=== PATIENT | male | born 1935 | race Caucasian/White ===

== ENCOUNTER 2021-03-07 14:57 | Outpatient (REF) | payer MEDICARE, OTHER, SELFPAY ==
--- NOTE | ~2021-03-07 | CT_ITS ---
EXAMINATION: CT HEAD WITHOUT CONTRAST CLINICAL INFORMATION: Head trauma COMPARISON: None TECHNIQUE: Contiguous axial imaging was performed from the skull base to vertex without intravenous administration of contrast. This CT examination was performed using dose optimization techniques as appropriate, variously including the following: *Automated exposure control *Adjustment of mA and/or kV according to patient size (this includes techniques or standardized protocols for targeted exams where dose is matched to indication/reason for exam; i.e. extremities or head) *Use of iterative reconstruction technique DLP: 884 mGy-cm FINDINGS: There is no evidence of an extra-axial collection. There is no evidence of intra-axial or axial hemorrhage. The ventricles and extra-axial CSF spaces are prominent suggestive of generalized atrophy. There is nonspecific periventricular white matter disease. No mass, mass effect or infarct is seen. There is evidence of atherosclerotic disease. Review at bone windows is normal. No skull fracture is seen. Visualized paranasal sinuses, mastoid air cells and middle ears are clear. CT/CT head/brain wo con IMPRESSION: No acute intracranial pathology. Mild generalized atrophy and nonspecific periventricular white matter disease.
== END 2021-03-07 14:58 | disposition home or self-care (01) ==
LOC: HO.CT 14:57
PROVIDERS: PCP Internal Medicine; Visit Provider Internal Medicine
DX: S09.90XD Unspecified injury of head, subsequent encounter (principal); Z91.81 History of falling
CPT/HCPCS: 70450

== ENCOUNTER 2022-12-09 16:33 | Outpatient (REF) | payer MEDICARE, OTHER, SELFPAY ==
--- NOTE | ~2022-12-09 | XR_ITS ---
EXAMINATION: XR CHEST CLINICAL INFORMATION: Frequent cough COMPARISON: Previous chest x-ray August 2017 TECHNIQUE: 2 views of the chest were obtained. FINDINGS: The cardiac and mediastinal contours are stable. Mitral valve replacement and median sternotomy wires. Calcified aortic arch. The lungs are clear. No pleural effusion or pneumothorax. Degenerative changes of the spine. XR/XR chest 2V IMPRESSION: No evidence for acute disease in the chest.
== END 2022-12-09 16:34 | disposition home or self-care (01) ==
LOC: HO.XRAY 16:33
PROVIDERS: PCP Internal Medicine; Visit Provider Internal Medicine
DX: R05.9 Cough, unspecified (principal); R09.89 Other specified symptoms and signs involving the circulatory and respiratory systems
CPT/HCPCS: 71046

== ENCOUNTER 2023-04-19 14:32 | Outpatient (REF) | payer MEDICARE, OTHER, SELFPAY ==
--- NOTE | ~2023-04-19 | XR_ITS ---
EXAMINATION: XR SHOULDER, RIGHT CLINICAL INFORMATION: Right shoulder pain. COMPARISON: None available. TECHNIQUE: 4 views of the right shoulder. FINDINGS: Median sternotomy wires partially visualized. Mild degenerative changes in the acromioclavicular joint with joint space narrowing and hypertrophic change. Small corticated ossicle adjacent to the acromioclavicular joint. Degenerative changes with hypertrophic change along the glenoid. XR/XR shoulder RT min 2V IMPRESSION: 1. Mild degenerative changes in the acromioclavicular joint. 2. Degenerative changes with hypertrophic change along the glenoid.
== END 2023-04-19 14:33 | disposition home or self-care (01) ==
LOC: HO.XRAY 14:32
PROVIDERS: PCP Internal Medicine; Visit Provider Internal Medicine
DX: M25.511 Pain in right shoulder (principal)
CPT/HCPCS: 73030

== ENCOUNTER 2023-05-05 14:02 | Outpatient (AMB) | payer MEDICARE, OTHER, SELFPAY ==
--- NOTE | 2023-05-05 14:04 | A.OFFVIS_ITS ---
Intake Vital Signs 05/05/23 14:06 Height 5 ft 9 in Weight 180 lb BMI 26.6 Intake Visit Reasons: [employer]-right shoulder pain-DOI 04/19/23 Intake Note: Juarez is a 87 year old Right hand dominate male who presents as a new patient with Right shoulder pain and weakness. The patient describes his pain as sharp in nature. The patient did fall onto his right shoulder approximately 6 months ago. Since that time he has had weakness when lifting his right hand above shoulder height. Has had cortisone injections in the past which gave him minimal relief. He has also done physical therapy which aggravated his pain. He has tried Tylenol and anti-inflammatory medicines which gave him minimal relief. Allergies No Known Allergies Allergy (Verified 05/05/23 14:09) Tetanus Allergy (Unknown, Uncoded 05/05/23 14:09) Unknown [facility] Surgical History (Updated 05/05/23 @ 14:12 by Jeanine Palmer CMA) History of pancreatic surgery (Unknown) History of quadruple bypass (~2016) Social History (Updated 05/05/23 @ 14:12 by Jeanine Palmer CMA) Patient Tobacco Use Status: Never used Tobacco Current occupational status: retired Current occupation: Right hand dominate Physical Exam Vital Signs: BMI result Body Mass Index 26.6 Const Other: Well-nourished well-developed very friendly male awake alert and oriented x3 in no acute distress Extrem Other: Bilateral upper extremity examination shows good capillary refill, no skin lesions noted, normal sensation light touch Right shoulder examination shows decreased active range of motion when compared to his left shoulder, 4/5 strength with supraspinatus testing, positive impingement signs, tenderness over his acromioclavicular joint, no instability Results Reviewed Results Reviewed: X-rays of the patient's right shoulder show severe acromioclavicular joint narrowing, a type 2 acromion, no acute bony abnormalities Assessment & Plan Assessment & Plan (1) Right shoulder pain: Code(s): M25.511 - Pain in right shoulder Plan Mr. Arriola presents with progressively worsening right shoulder pain and weakness most likely due to a full-thickness rotator cuff tear. Thus, I will send the patient for an MRI of his right shoulder for further evaluation. I will see him back once the MRI is completed to discuss the findings and treatment options. Feel free to call me at any time should questions regarding his orthopedic management arise. Thank you very much for asking me to see this very friendly gentleman. I spent 22 minutes in reviewing the patient's records and imaging studies, seeing the patient and documenting in the medical record. Orders: Orders MR shoulder RT wo con 05/05/23 M75.101 - Unspecified rotator cuff tear or rupture of right shoulder, not specified as traumatic Coding Level of Care Code New Pt Level 2 (46453) Diagnoses Right shoulder pain M25.511
[2023-05-05 14:06] VITALS: BMI 26.6
== END 2023-05-05 14:35 | disposition home or self-care (01) ==
PROVIDERS: PCP Internal Medicine; Visit Provider Orthopaedic Surgery
DX: M25.511 Pain in right shoulder (principal)
CPT/HCPCS: 99202

== ENCOUNTER → 2023-05-05 14:02 | Outpatient (BNVA) | payer MEDICARE, OTHER, SELFPAY | PROVIDERS: PCP Internal Medicine; Visit Provider Orthopaedic Surgery | DX: M25.511 Pain in right shoulder (principal) | CPT/HCPCS: 99202 ==

== ENCOUNTER 2023-06-03 13:23 | Outpatient (AMB) | payer MEDICARE, OTHER, SELFPAY ==
[2023-06-03 13:25] VITALS: BMI 26.6
--- NOTE | 2023-06-03 13:25 | A.OFFVIS_ITS ---
Intake Vital Signs 06/03/23 13:25 Height 5 ft 9 in Weight 180 lb BMI 26.6 Intake Visit Reasons: O/V MRI rev Shoulder Right Intake Note: Juarez is a 87 year old Right hand dominate male who presents for an MRI review of his Right shoulder. The patient reports mild intermittent discomfort in his right shoulder. He reports minimal weakness. He continues to swim for exercise. He does not take any medicines for his discomfort. Allergies No Known Allergies Allergy (Verified 06/03/23 13:29) Tetanus Allergy (Unknown, Uncoded 05/05/23 14:09) Unknown Medication List - Last Reconciled 06/04/23 by Eb Blue MD amoxicillin 1,000 mg PO BID atorvastatin 80 mg PO DAILY metoprolol succinate ER 25 mg PO DAILY tamsulosin 0.4 mg PO DAILY [facility] Surgical History (Updated 05/05/23 @ 14:12 by Jeanine Palmer CMA) History of pancreatic surgery (Unknown) History of quadruple bypass (~2016) Social History (Updated 05/05/23 @ 14:12 by Jeanine Palmer CMA) Patient Tobacco Use Status: Never used Tobacco Current occupational status: retired Current occupation: Right hand dominate Physical Exam Vital Signs: BMI result Body Mass Index 26.6 Const Other: Well-nourished well-developed very friendly male awake alert and oriented x3 in no acute distress Extrem Other: Bilateral upper extremity examination shows good capillary refill, no skin lesions noted, normal sensation light touch Right shoulder examination shows full active range of motion when compared to his left shoulder, 4/5 strength with supraspinatus testing, positive impingement signs, no instability Results Reviewed Results Reviewed: MRI of the patient's right shoulder shows severe acromioclavicular joint narrowing, a type 2 acromion, a small full-thickness tear along the anterior aspect of the supraspinatus tendon Assessment & Plan Assessment & Plan (1) Right shoulder pain: Code(s): M25.511 - Pain in right shoulder Plan Mr. Arriola presents with intermittent right shoulder discomfort due to impingement syndrome and a small full-thickness rotator cuff tear. I had a lengthy discussion with the patient regarding the treatment options. The patient's symptoms are tolerable to him at this time. He wishes to hold off on surgery if at all possible. The patient does understand that his tear can become larger in size and even irreparable over time. Activity modifications were discussed at length with the patient. The patient will follow up with me on an as-needed basis should his symptoms worsen in any way. Feel free to call me at any time should questions regarding his orthopedic management arise. I spent 22 minutes in reviewing the patient's records and imaging studies, seeing the patient and documenting in the medical record. Coding Level of Care Code Est Pt Level 2 (30764) Diagnoses Right shoulder pain M25.511
== END 2023-06-03 13:46 | disposition home or self-care (01) ==
PROVIDERS: PCP Internal Medicine; Visit Provider Orthopaedic Surgery
DX: M75.41 Impingement syndrome of right shoulder (principal); M75.121 Complete rotator cuff tear or rupture of right shoulder, not specified as traumatic
CPT/HCPCS: 99213

== ENCOUNTER → 2023-06-03 13:23 | Outpatient (BNVA) | payer MEDICARE, OTHER, SELFPAY | PROVIDERS: PCP Internal Medicine; Visit Provider Orthopaedic Surgery | DX: M25.511 Pain in right shoulder (principal) | CPT/HCPCS: 99212 ==

== ENCOUNTER 2024-02-02 15:16 | Outpatient (REF) | payer MEDICARE, OTHER, SELFPAY ==
--- NOTE | ~2024-02-02 | XR_ITS ---
EXAMINATION: XR CHEST CLINICAL INFORMATION: Cough. COMPARISON: Chest radiograph dated 12/09/2022. TECHNIQUE: 2 views of the chest were obtained. FINDINGS: Stable cardiomediastinal silhouette. Sternal wires, mediastinal surgical clips, and valvuloplasty are redemonstrated. No pleural effusion or pneumothorax. Minimal bibasilar atelectasis without large, confluent airspace consolidation. XR/XR chest 2V IMPRESSION: Minimal bibasilar atelectasis without large, confluent airspace consolidation. Electronically signed by: Prashanth Reed MD 02/03/2024 01:05 PM [facility]
== END 2024-02-02 15:17 | disposition home or self-care (01) ==
LOC: HO.XRAY 15:16
PROVIDERS: PCP Internal Medicine; Visit Provider Internal Medicine
DX: R05.9 Cough, unspecified (principal); U07.1 COVID-19
CPT/HCPCS: 71046

== ENCOUNTER 2024-04-21 10:41 | Outpatient (REF) | payer MEDICARE, OTHER, SELFPAY ==
--- NOTE | ~2024-04-21 | XR_ITS ---
EXAMINATION: XR HAND/WRIST, LEFT CLINICAL INFORMATION: FALL ON ICE, LEFT HAND PAIN COMPARISON: None available. TECHNIQUE: PA, lateral, and oblique views of the left hand and wrist. FINDINGS: There is normal bone mineralization. There is no fracture, dislocation, or suspicious bone lesion. There is normal alignment. 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 Mild DIP joint degenerative changes in the second and third digits. No soft tissue abnormality. There are diffuse vascular calcifications. XR/XR hand wrist LT IMPRESSION: No acute bony or soft tissue abnormalities. Electronically signed by: Skinny Flores MD 04/21/2024 11:27 AM [facility]
--- OUTSIDE RECORDS SUMMARY | 2024-04-21 11:45 | XMS_ITS | Continuity of Care Document ---
Author Organization [facility] Address [address] [place] [id number]- Care Team Providers Care Pooling Operator Name Role Phone Caesar Faust MD Primary Care Physician Encounter [facility] Date(s): 02/24/24 - 04/10/24 [facility] [address] [place] [id number]- Attending Physician: Symone Tomas NP Admitting Physician: Symone Tomas NP Referring Physician: Caesar Faust MD Encounter Type: Pre-OutPatient One Time Allergies, Adverse Reactions, Alerts No Known Medication Allergies Medications aspirin 81 mg oral tablet 1 tablet = 81 mg, By Mouth, Daily, 0 Refills, Maintenance, 10/26/17 1:33:19 PM EDT Start Date: 10/26/17 Status: Ordered Repeat number: 1 Co-Q10 By Mouth, 0 Refills, Maintenance, 02/05/23 11:01:00 AM EST, Partial fill upon patient request if theprescription is for a schedule II opioid drug. Start Date: 02/05/23 Status: Ordered Repeat number: 1 Flomax 0.4 mg oral capsule 0.4 mg, 1, capsule, By Mouth, Daily, Refills 0, Maintenance, 07/13/16 2:20:15 PM EDT Start Date: 07/13/16 Status: Ordered Repeat number: 1 glucosamine 1000 mg oral capsule 3 capsule = 3,000 mg, By Mouth, Daily, 0 Refills, Maintenance, 02/05/23 11:01:00 AM EST, Partial fill upon patient request if the prescription is for a schedule II opioid drug. Start Date: 02/05/23 Status: Ordered Repeat number: 1 Lipitor 80 mg oral tablet 1 tablet = 80 mg, By Mouth, Daily at bedtime, 0 Refills, Maintenance Start Date: 07/13/16 Status: Ordered Repeat number: 1 Metoprolol Succinate ER 25 mg oral tablet, extended release TAKE 1/2 TABLET BY MOUTH TWICE A DAY Start Date: 02/05/23 Status: Ordered Repeat number: 1 Multivitamin Daily, 0 Refills, Maintenance, 07/13/16 2:20:52 PM EDT Start Date: 07/13/16 Status: Ordered Repeat number: 1 Proscar 5 mg oral tablet 1 tablet = 5 mg, By Mouth, Daily, 0 Refills, Maintenance, 07/13/16 2:18:56 PM EDT Start Date: 07/13/16 Status: Ordered Repeat number: 1 Social History Social History Type Response Smoking Status Never smoker entered on: 07/13/16 Sex Sex Representation Male (finding) Patient Care team information Care Team Personnel Name: Caesar Faust MD Position: [facility] Outreach Member Role: PCP Address: [address] [place] [address] Caesar Faust MD [address] Telecom: Care Team Related Persons Name: JULIO CESAR ROBLEDO Name: EULA BAEZ Insurance Providers Guarantor name: ISMAEL TEIXEIRALEY Health Plan Information #: 1 Payer: MEDICARE PART B OUTPT Member Number: [id number] Policy Number: NA Group Number: NA Health Plan Information #: 2 Payer: [facility] Member Number: [id number] Policy Number: NA Group Number: [id number]
== END 2024-04-21 10:42 | disposition home or self-care (01) ==
LOC: HO.XRAY 10:41
PROVIDERS: PCP Internal Medicine; Visit Provider Family Medicine
DX: M79.642 Pain in left hand (principal)
CPT/HCPCS: 73110; 73130

== ENCOUNTER → 2024-04-21 10:46 | Outpatient (BNV) | payer MEDICARE, OTHER, SELFPAY | PROVIDERS: PCP Internal Medicine; Visit Provider Radiology Diagnostic Radiology | DX: S69.92XA Unspecified injury of left wrist, hand and finger(s), initial encounter (principal) | CPT/HCPCS: 73110; 73130 ==